=== PATIENT | female | born 1985 | race Caucasian/White ===

== ENCOUNTER 2020-10-17 13:04 | Day surgery (SDC) | payer BC | END 2020-10-17 14:48 | disposition home or self-care (01) | LOC: CSHSDC/OP 13:04 | PROVIDERS: ATTEND Obstetrics & Gynecology | DX: O00.90 Unspecified ectopic pregnancy without intrauterine pregnancy (principal); Z91.040 Latex allergy status; Z91.041 Radiographic dye allergy status; Z91.048 Other nonmedicinal substance allergy status | CPT/HCPCS: J9250 ==

== ENCOUNTER 2020-10-24 08:13 | Outpatient (CLI) | payer BC | END 2020-10-24 08:14 | disposition home or self-care (01) | LOC: CSHLAB 08:13 | PROVIDERS: ATTEND Obstetrics & Gynecology | DX: Z01.812 Encounter for preprocedural laboratory examination (principal); Z20.822 Contact with and (suspected) exposure to COVID-19; O00.90 Unspecified ectopic pregnancy without intrauterine pregnancy; O00.101 Right tubal pregnancy without intrauterine pregnancy | CPT/HCPCS: 84703; 85025; 86850; 86900; 86901; 87635; U0003; U0005 ==

== ENCOUNTER 2023-07-19 08:34 | Outpatient (CLI) | payer BC | END 2023-07-19 08:35 | disposition home or self-care (01) | LOC: CSHCT 08:34 | PROVIDERS: ATTEND Internal Medicine Cardiovascular Disease | DX: R06.02 Shortness of breath (principal); Q27.8 Other specified congenital malformations of peripheral vascular system | CPT/HCPCS: 71260 ==

== ENCOUNTER 2024-04-19 12:16 | Outpatient (CLI) | payer BC | END 2024-04-19 12:17 | disposition home or self-care (01) | LOC: CSHRAD 12:16 | PROVIDERS: ATTEND Chiropractor | DX: M54.50 Low back pain, unspecified (principal); M47.816 Spondylosis without myelopathy or radiculopathy, lumbar region | CPT/HCPCS: 72100 ==